=== PATIENT | male | born 1995 | race Caucasian/White ===

== ENCOUNTER → 2020-07-09 11:18 | Outpatient (BNVA) | payer OTHER, SELFPAY | PROVIDERS: PCP Internal Medicine; Visit Provider Physician Assistant | DX: Z20.828 Contact with and (suspected) exposure to other viral communicable diseases (principal) | CPT/HCPCS: U0003 ==

== ENCOUNTER 2020-09-24 14:57 | Outpatient (REF) | payer OTHER, SELFPAY ==
--- NOTE | 2020-09-24 | US_ITS ---
EXAMINATION: US RETROPERITONEAL LIMITED (RENAL ONLY) CLINICAL INFORMATION: Nephrolithiasis. COMPARISON: Previous renal ultrasound most recent August [address] most recent April 2018 TECHNIQUE: Grayscale and color imaging of the kidneys FINDINGS: RIGHT KIDNEY: 10.7 x 4.7 x 6.1 cm (SAG x AP x TRV). The kidney is normal in size, contour, and echogenicity. Renal cortical thickness is normal. There are 2 stones in the lower pole measuring 9 x 5 x 7 mm and 4 x 3 x 2 mm. There are additional smaller echogenic foci without twinkle artifact or shadowing questionable for tiny stones. No focal parenchymal lesions. No hydronephrosis. LEFT KIDNEY: 11.7 x 5.6 x 5.8 cm (SAG x AP x TRV). The kidney is normal in size, contour, and echogenicity. Renal cortical thickness is normal. There are several small echogenic foci without twinkle artifact or shadowing questionable tiny stones. No focal parenchymal lesions. No hydronephrosis. US/US renal BI IMPRESSION: Right renal stones and question small left renal stones.
== END 2020-09-24 14:58 | disposition home or self-care (01) ==
LOC: HO.HMGCX 14:57
PROVIDERS: Visit Provider Urology
DX: N20.0 Calculus of kidney (principal)
CPT/HCPCS: 76775

== ENCOUNTER 2020-09-27 15:09 | Outpatient (REF) | payer OTHER, SELFPAY ==
--- NOTE | 2020-09-27 15:16 | XR_ITS ---
EXAMINATION: XR ABDOMEN KUB CLINICAL INDICATION: Kidney stones COMPARISON: Previous CT of the abdomen and pelvis January 2019 and previous renal ultrasounds most recent 09/08/2020 TECHNIQUE: AP view of the abdomen. FINDINGS: No definite stone is seen by KUB. There are several echogenic densities that project over the lower pole of the right kidney. It is uncertain whether this could represent small right renal stones or related to overlying bowel gas. The largest measures 3 x 5 mm and the smaller measures 3 mm. Bony structures are normal. XR/XR KUB IMPRESSION: 2 echogenic densities projecting over the lower pole of the right kidney. It is uncertain whether these represent small right lower pole renal stones or related to overlying bowel gas.
== END 2020-09-27 15:10 | disposition home or self-care (01) ==
LOC: HO.XRAY 15:09
PROVIDERS: Visit Provider Urology
DX: N20.0 Calculus of kidney (principal)
CPT/HCPCS: 74018

== ENCOUNTER → 2020-10-02 14:00 | Outpatient (BNVA) | payer OTHER, SELFPAY | PROVIDERS: Visit Provider Urology | DX: N20.0 Calculus of kidney (principal) | CPT/HCPCS: Q3014 ==

== ENCOUNTER 2021-04-03 15:56 | Outpatient (REF) | payer OTHER, SELFPAY ==
--- NOTE | ~2021-04-03 | US_ITS ---
EXAMINATION: US RETROPERITONEAL LIMITED (RENAL ONLY) CLINICAL INFORMATION: Calculus of kidney. COMPARISON: KUB 09/27/2020. Renal ultrasound 09/24/2020 [address] 08/17/2019. CT abdomen and pelvis 01/26/2019. TECHNIQUE: Real-time imaging of the kidneys. FINDINGS: RIGHT KIDNEY: 12.3 x 5.1 x 5.9 cm (SAG x AP x TRV). The kidney is normal in size, contour, and echogenicity. Renal cortical thickness is normal. No focal parenchymal lesions or hydronephrosis. Within the lower pole, there is an 8 x 4 mm echogenic focus with twinkle artifact consistent with calculus. Within the midpole, there is a 3 mm echogenic focus without shadowing or twinkle artifact and may represent calculus. LEFT KIDNEY: 12.6 x 5.8 x 3.9 cm (SAG x AP x TRV). The kidney is normal in size, contour, and echogenicity. Renal cortical thickness is normal. No focal parenchymal lesions or hydronephrosis. Within the lower pole, there is a 6 mm calcification present without definite twinkle artifact. Within the midpole, there is a 3 mm echogenic focus without definite twinkle artifact. US/US renal BI IMPRESSION: Nonobstructing bilateral nephrolithiasis, as described.
== END 2021-04-03 15:57 | disposition home or self-care (01) ==
LOC: HO.US 15:56
PROVIDERS: Visit Provider Urology
DX: N20.0 Calculus of kidney (principal)
CPT/HCPCS: 76775

== ENCOUNTER → 2021-08-09 11:44 | Outpatient (BNVA) | payer OTHER, SELFPAY | PROVIDERS: Visit Provider Urology ==